=== PATIENT | female | born 1980 | race Native Hawaiian/Other Pacific Islander ===

== ENCOUNTER 2020-02-19 17:53 | Emergency (ER) | payer OTHER ==
[2020-02-19] MEDS ORDERED: fentaNYL 100 MCG/2 ML INJ IV ONE ×2 (18:10→18:50)
[2020-02-19] MEDS ORDERED: ONDANSETRON 4 MG/2 ML INJ IV ONE ×2 (18:10→19:03)
[2020-02-19] MEDS ORDERED: MORPHINE 4 MG/1 ML INJ IV ONE (19:03)
[2020-02-19 20:12] LABS: Basophils % (Auto) 0.3 % (0.0-1.8); Eosinophils # (Auto) 0.1 K/mm3 (0.0-0.4); Eosinophils % (Auto) 0.7 % (0.0-4.3); Hematocrit 33.4 % (30.3-42.9); Hemoglobin 11.2 gm/dl (10.1-14.3); Lymphocytes # (Auto) 1.3 K/mm3 (1.2-5.4); Lymphocytes % (Auto) 9.5 % (13.4-35.0); Mean Corpuscular HGB Conc 33 % (30-34); Mean Corpuscular Volume 82 fl (79-97); Monocytes # (Auto) 0.6 K/mm3 (0.0-0.8); Monocytes % (Auto) 4.5 % (0.0-7.3); Platelet Count 281 K/mm3 (140-440); Red Blood Count 4.09 M/mm3 (3.65-5.03); Red Cell Distribution Width 15.4 % (13.2-15.2)
[2020-02-19 20:35] LABS: Alanine Aminotransferase 11 units/L (7-56); Albumin 4.2 g/dL (3.9-5); Blood Urea Nitrogen 10 mg/dL (7-17); Calcium 8.9 mg/dL (8.4-10.2); Hemolysis Index 1
[2020-02-19 20:38] LABS: BUN/Creatinine Ratio 17
[2020-02-19] MEDS ORDERED: HYDROmorphone 1 MG/1 ML INJ IV ONE ×2 (20:49→22:05)
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
--- NOTE | 2020-02-19 22:40 | XRay Report ---
LEFT ELBOW AP AND LATERAL VIEWS INDICATION / CLINICAL INFORMATION: pain. COMPARISON: None available. FINDINGS: BONES/JOINT(S): No acute fracture or subluxation. No significant degenerative changes. SOFT TISSUES: There are multiple radiopaque foreign bodies in the posterior aspect of the upper arm. ADDITIONAL FINDINGS: None. Signer Name: Josep Bello MD Signed: 02/19/2020 10:36 PM Workstation Name: [id number]
[2020-02-19] MEDS ORDERED: HYDROcodone/ACETAMINOPHEN 10-325MG TAB PO ONE (23:19)
[2020-02-19] MEDS ORDERED: ONDANSETRON 4 MG ODT TAB PO ONE (23:20)
[2020-02-20 00:02] VITALS: BP 116/50
== END 2020-02-19 23:35 | disposition home or self-care (01) ==
LOC: ED 17:53
DX: S60.552A Superficial foreign body of left hand, initial encounter (principal); S16.1XXA Strain of muscle, fascia and tendon at neck level, initial encounter; R07.89 Other chest pain; M54.6 Pain in thoracic spine; V49.49XA Driver injured in collision with other motor vehicles in traffic accident, initial encounter; Y93.89 Activity, other specified; Y92.488 Other paved roadways as the place of occurrence of the external cause; Y99.8 Other external cause status
CPT/HCPCS: 36415; 70450; 71260; 72125; 72128; 72131; 73070; 74177; 80053; 84702; 85025; 96374; 96375; 99285; J1170; J2270; J2405; J3010; Q9967; Q0162